=== PATIENT | female | born 1970 | race Caucasian/White ===

== ENCOUNTER 2021-04-27 02:41 | Emergency (ER) | payer OTHER ==
[2021-04-27] MEDS ORDERED: MEDROL 4MG DOSEP4 MG PO (05:02)
[2021-04-27] MEDS ORDERED: FIORICET1 EACH PO (05:02)
[2021-04-27] MEDS ORDERED: ROBAXIN500 MG PO (05:02)
[2021-04-27] MEDS ORDERED: ETODOLAC300 MG PO (05:02)
== END 2021-04-27 05:20 | disposition home or self-care (01) ==
LOC: FER 02:41
DX: S13.4XXA Sprain of ligaments of cervical spine, initial encounter (principal); R51.9 Headache, unspecified; R11.0 Nausea; F17.210 Nicotine dependence, cigarettes, uncomplicated; W20.8XXA Other cause of strike by thrown, projected or falling object, initial encounter; Y92.89 Other specified places as the place of occurrence of the external cause; Y99.0 Civilian activity done for income or pay
CPT/HCPCS: 70450; 72072; 72125; 96372; J1100; J1885; J2405; J2800; J7050